=== PATIENT | male | born 1965 | race Caucasian/White ===

== ENCOUNTER 2022-01-28 16:10 | Emergency (ER) | payer OTHER ==
[2022-01-28 17:29] LABS: ESTIMATED GFR 60 mL/min (>60)
[2022-01-28] MEDS ORDERED: NS with KCl 40mEq 1,000 ML IV SCH (17:45)
[2022-01-28] MEDS ORDERED: Pantoprazole 40 MG Vial IVPUSH ONE (18:34)
== END 2022-01-28 19:18 | disposition home or self-care (01) ==
LOC: JP.ED 16:10
DX: R11.2 Nausea with vomiting, unspecified (principal); E86.0 Dehydration; E87.6 Hypokalemia; Z79.01 Long term (current) use of anticoagulants; Z20.822 Contact with and (suspected) exposure to COVID-19
CPT/HCPCS: 36415; 80053; 85025; 87635; 96365; 96375; 99282; 99284; C9113; J3480; U0002